=== PATIENT | female | born 1980 | race Caucasian/White ===

== ENCOUNTER 2021-09-09 07:01 | Emergency (ER) | payer BC, MEDICAID ==
[~2021-09-09] VITALS: Ht 177.8 cm; Wt 79.5 kg
[~2021-09-09 07:01] MED LIST: NO HOME MEDS; ZOF4T PO
[2021-09-09 07:06] VITALS: BP 119/86
[2021-09-09] MEDS ORDERED: ketorolac trometh. 30mg/ml inj. IM ONE (07:45)
[2021-09-09] MEDS ORDERED: HYDR-3972 PO (09:17)
== END 2021-09-09 09:21 | disposition home or self-care (01) ==
LOC: ER 07:01
DX: S60.211A Contusion of right wrist, initial encounter (principal); S30.0XXA Contusion of lower back and pelvis, initial encounter; F17.200 Nicotine dependence, unspecified, uncomplicated; Z87.448 Personal history of other diseases of urinary system; W18.39XA Other fall on same level, initial encounter; Y93.89 Activity, other specified; Y92.89 Other specified places as the place of occurrence of the external cause; Y99.8 Other external cause status
CPT/HCPCS: 29125; 73100; 73110; 73130; 96372; 99284; J1885

== ENCOUNTER 2021-09-16 08:31 | Emergency (ER) | payer BC, MEDICAID ==
[~2021-09-16 08:31] MED LIST changes: +HYDR-3972 PO
== END 2021-09-16 10:29 | disposition left against medical advice (07) ==
LOC: ER 08:32
DX: Z53.21 Procedure and treatment not carried out due to patient leaving prior to being seen by health care provider (principal)

== ENCOUNTER 2021-09-17 07:25 | Emergency (ER) | payer BC, MEDICAID ==
[~2021-09-17] VITALS: Ht 177.8 cm; Wt 79.5 kg
[2021-09-17 07:34] VITALS: BP 115/77
== END 2021-09-17 09:50 | disposition home or self-care (01) ==
LOC: ER 07:25
DX: S60.211A Contusion of right wrist, initial encounter (principal); F17.200 Nicotine dependence, unspecified, uncomplicated; Z87.440 Personal history of urinary (tract) infections; Z72.89 Other problems related to lifestyle; Z79.899 Other long term (current) drug therapy; W01.0XXA Fall on same level from slipping, tripping and stumbling without subsequent striking against object, initial encounter; Y93.89 Activity, other specified; Y92.89 Other specified places as the place of occurrence of the external cause; Y99.8 Other external cause status
CPT/HCPCS: 29125; 99284

== ENCOUNTER 2022-11-09 07:08 | Emergency (ER) | payer BC, MEDICAID ==
[~2022-11-09] VITALS: Ht 177.8 cm; Wt 75.0 kg
[~2022-11-09 07:08] MED LIST changes: -HYDR-3972 PO
[2022-11-09 07:15] VITALS: BP 114/94
[2022-11-09] MEDS ORDERED: dexamethasone sod phosphate 10mg/ml inj PO STA (07:51)
[2022-11-09] MEDS ORDERED: PRED20TA PO (07:54)
[2022-11-09] MEDS ORDERED: AMOX-117 PO (07:54)
[2022-11-09] MEDS ORDERED: amox tr/potassium clavulanate 875/125mg TAB PO ONE (07:55)
== END 2022-11-09 08:22 | disposition home or self-care (01) ==
LOC: ER 07:08
DX: L23.7 Allergic contact dermatitis due to plants, except food (principal); F17.210 Nicotine dependence, cigarettes, uncomplicated
CPT/HCPCS: 99283; J1100; A6258

== ENCOUNTER 2023-03-29 09:10 | Emergency (ER) | payer BC, MEDICAID ==
[~2023-03-29] VITALS: Ht 177.8 cm; Wt 75.0 kg
[2023-03-29 09:10] VITALS: BP 120/87; PULSE 94; RESP 20; TEMP 97.2; O2SAT 100
[2023-03-29 09:44] LABS: STREP A SCREEN NEGATIVE (Neg)
== END 2023-03-29 10:28 | disposition home or self-care (01) ==
LOC: ER 09:11
DX: B34.9 Viral infection, unspecified (principal); J02.9 Acute pharyngitis, unspecified; Z72.89 Other problems related to lifestyle; Z79.899 Other long term (current) drug therapy
CPT/HCPCS: 87081; 87880; 99283

== ENCOUNTER 2024-01-15 04:22 | Emergency (ER) | payer MEDICAID ==
[~2024-01-15] VITALS: Ht 177.8 cm; Wt 77.3 kg
[2024-01-15 04:26] VITALS: TEMP 97.3
[2024-01-15] MEDS: acetaminophen 325mg tablet PO ONE (05:15)
[2024-01-15] MEDS: phenazopyridine 100mg tablet PO ONE (05:15)
[2024-01-15] MEDS: ibuprofen tablet 400 MG TABLET PO ONE (05:15)
[2024-01-15 05:48] LABS: BILIRUBIN,URINE NEGATIVE (Neg); CLARITY,URINE SLIGHTLY CLOUDY (Clear); COLOR,URINE YELLOW (Yellow); GLUCOSE, URINE NEGATIVE (Neg); KETONES,URINE TRACE mg/dl (Neg); LEUKOCYTE ESTERASE ,URINE NEGATIVE (Neg); NITRITES, URINE POSITIVE (Neg); OCCULT BLOOD,URINE NEGATIVE (Neg); PROTEIN,URINE NEGATIVE (Neg); UROBILINOGEN,URINE 0.2 E.U/dL (0.2-1.0)
[2024-01-15 05:49] LABS: URINE HCG NEGATIVE (NEG)
[2024-01-15 05:50] LABS: UA COLLECTION TYPE NON-SPECIFIED
[2024-01-15 06:01] LABS: BACTERIA,URINE 4+ /HPF (Neg); CAL OXALATE CRYSTALS FEW /HPF (NEGATIVE); MUCUS STRANDS MANY /LPF (Neg); RBC,URINE NONE SEEN /HPF (0-2); SQUAMOUS EPITHELIAL CELL,UR MANY /LPF (FEW)
[2024-01-15] MEDS ORDERED: CEPH-585 PO (06:03)
[2024-01-15] MEDS ORDERED: PHEN-716 PO (06:04)
[2024-01-15] MEDS: cephalexin 250mg capsule PO ONE (06:07)
[2024-01-15 06:11] VITALS: BP 124/90; PULSE 67; RESP 16; O2SAT 92
== END 2024-01-15 06:12 | disposition home or self-care (01) ==
LOC: ER 04:22
DX: N39.0 Urinary tract infection, site not specified (principal); Z79.899 Other long term (current) drug therapy; Z72.89 Other problems related to lifestyle
CPT/HCPCS: 81001; 81025; 99284

== ENCOUNTER 2024-03-11 18:55 | Emergency (ER) | payer MEDICAID ==
[~2024-03-11] VITALS: Ht 177.8 cm; Wt 74.8 kg
[~2024-03-11 18:55] MED LIST changes: +PHEN-716 PO
[2024-03-11 19:10] VITALS: BP 101/64; PULSE 106; RESP 16; TEMP 97.8; O2SAT 96
== END 2024-03-11 20:45 | disposition left against medical advice (07) ==
LOC: ER 18:55
DX: R07.81 Pleurodynia (principal); M53.3 Sacrococcygeal disorders, not elsewhere classified; Z53.21 Procedure and treatment not carried out due to patient leaving prior to being seen by health care provider

== ENCOUNTER 2024-06-27 09:10 | Emergency (ER) | payer MEDICAID, OTHER | END 2024-06-27 12:11 | disposition left against medical advice (07) | LOC: ER 09:11 | DX: N39.0 Urinary tract infection, site not specified (principal); Z53.21 Procedure and treatment not carried out due to patient leaving prior to being seen by health care provider ==